=== PATIENT | female | born 1980 | race Caucasian/White ===

== ENCOUNTER 2017-08-06 16:07 | Emergency (ER) | payer OTHER, MEDICAID ==
[~2017-08-06] VITALS: Ht 172.7 cm; Wt 93.4 kg
[~2017-08-06 16:07] MED LIST: CIPRO500 MG PO; FLOMAX0.4 MG PO; HYDROCODON-ACE1 EAC7 PO; HYDROCODONE-AP1 EAC6 PO; IBUPROFEN 800800 M1 PO; LEXAPRO 10 MG T10 M2 PO; LISINOPRIL20 MG PO; ONDANSETRON HCL4 M2 PO; PENICILLIN V P500 MG PO; PHENERGAN 25 MG25 M1 PO; PYRIDIUM100 M1 PO; TORADOL 10 MG T10 MG PO
[2017-08-06 17:21] LABS: INFLUENZA A ANTIGEN None Detected (None Detect); INFLUENZA B ANTIGEN None Detected (None Detect)
[2017-08-06] MEDS ORDERED: NORCO 5-325 TA1 EACH PO (17:31)
[2017-08-06] MEDS ORDERED: TESSALON PERLE100 MG PO (17:31)
[2017-08-06] MEDS ORDERED: VENTOLIN HFA 1818 GM INH (17:31)
[2017-08-06 17:45] VITALS: BP 168/73
--- NOTE | 2017-08-07 17:19 | EKG ---
[place] [address] ELECTROCARDIOGRAM REPORT Name: LATRICE JESSICA Room: [place]#: [id number] Admission: 08/06/17 Attend Phys: Discharge: 08/06/17 Date of : 84 Report #: [id number] THIS REPORT FOR: //name// [facility] ED Test Date: 2017-08-06 Test Time: 16:13:29 Pat Name: LATRICE JESSICA Department: Room: Gender: F Home [employer] Officer: Alberto NUNEZ : 1980 Requested By: Amanda Lr Order Number: [id number] Kasia MD: Napoleon Pavon Measurements Intervals [place] Rate: 69 P: 51 [place]: 141 QRS: 12 QRSD: 92 T: 25 QT: 375 QTc: 402 Interpretive Statements Sinus rhythm Compared to ECG 12/14/2016 16:49:36 No significant changes Electronically Signed On 08-07-2017 17:18:53 [employer] by Napoleon Pavon [email or web address] <ELECTRONICALLY SIGNED> By: Napoleon Pavon MD, [facility] 08/07/17 1718 1613 1613 Napoleon Pavon MD, FACC /EPI
== END 2017-08-06 17:46 | disposition home or self-care (01) ==
LOC: M.ERS 16:07
PROVIDERS: Physician Assistant
DX: J06.9 Acute upper respiratory infection, unspecified (principal); G89.18 Other acute postprocedural pain; B34.9 Viral infection, unspecified; I10 Essential (primary) hypertension; F32.9 Major depressive disorder, single episode, unspecified; F41.9 Anxiety disorder, unspecified; Z87.442 Personal history of urinary calculi; Z87.440 Personal history of urinary (tract) infections

== ENCOUNTER 2017-09-26 08:57 | Emergency (ER) | payer OTHER, MEDICAID ==
[~2017-09-26] VITALS: Ht 172.7 cm; Wt 93.4 kg
[~2017-09-26 08:57] MED LIST changes: +NORCO 5-325 TA1 EACH PO; +TESSALON PERLE100 MG PO; +VENTOLIN HFA 1818 GM INH
[2017-09-26] MEDS ORDERED: NAPROSYN500 MG PO (10:20)
[2017-09-26] MEDS ORDERED: CYCLOBENZAPRINE5 MG PO (10:20)
[2017-09-26] MEDS ORDERED: LIORESAL 10 MG10 MG PO (10:21)
[2017-09-26 10:31] VITALS: BP 133/80
== END 2017-09-26 10:31 | disposition home or self-care (01) ==
LOC: M.ERS 08:57
DX: M26.603 Bilateral temporomandibular joint disorder, unspecified (principal); I10 Essential (primary) hypertension; F32.9 Major depressive disorder, single episode, unspecified; F41.9 Anxiety disorder, unspecified; Z87.440 Personal history of urinary (tract) infections; Z87.442 Personal history of urinary calculi

== ENCOUNTER 2017-11-29 21:05 | Emergency (ER) | payer OTHER, MEDICAID ==
[~2017-11-29] VITALS: Ht 172.7 cm; Wt 93.4 kg
[~2017-11-29 21:05] MED LIST changes: +CYCLOBENZAPRINE5 MG PO; +LIORESAL 10 MG10 MG PO; +NAPROSYN500 MG PO
[2017-11-29 21:20] VITALS: BP 150/77
[2017-11-29] MEDS ORDERED: NORCO 5-325 TA1 EAC1 PO (22:22)
[2017-11-29] MEDS ORDERED: KEFLEX500 M1 PO (22:22)
== END 2017-11-29 21:35 | disposition home or self-care (01) ==
LOC: M.ERS 21:05
DX: S91.112A Laceration without foreign body of left great toe without damage to nail, initial encounter (principal); I10 Essential (primary) hypertension; F41.9 Anxiety disorder, unspecified; F32.9 Major depressive disorder, single episode, unspecified; Z87.442 Personal history of urinary calculi; W22.8XXA Striking against or struck by other objects, initial encounter; Y93.89 Activity, other specified; Y92.89 Other specified places as the place of occurrence of the external cause; Y99.8 Other external cause status

== ENCOUNTER 2017-12-19 21:18 | Emergency (ER) | payer OTHER, MEDICAID ==
[~2017-12-19] VITALS: Ht 172.7 cm; Wt 108.4 kg
[~2017-12-19 21:18] MED LIST changes: +KEFLEX500 M1 PO; +NORCO 5-325 TA1 EAC1 PO
[2017-12-19 21:56] LABS: URINE BILIRUBIN NEGATIVE (Negative); URINE BLOOD 3+ (Negative); URINE CLARITY CLEAR; URINE COLOR YELLOW; URINE GLUCOSE-RANDOM NEGATIVE (Negative); URINE KETONES NEGATIVE (Negative); URINE LEUKOCYTES-REFLEX 1+ (Negative); URINE NITRITE-REFLEX NEGATIVE (Negative); URINE PROTEIN TRACE (Negative); URINE SPECIFIC GRAVITY >= 1.030 (1.005-1.030); URINE UROBILINOGEN 0.2 E.U./dl (0.2-1.0)
[2017-12-19 22:16] LABS: CASTS None Seen /LPF (None Seen); MUCUS 0-3 Light strn/LPF (None Seen); SQUAMOUS >10 Many /LPF (0-3)
[2017-12-19 22:17] LABS: CRYSTALS None Seen /LPF (None Seen); URINE RBC >20 Many /HPF (0-2); URINE WBC-REFLEX 6-15 Few /HPF (0-5)
[2017-12-19] MEDS ORDERED: HYDROCODONE-AP1 EAC6 PO (22:31)
[2017-12-19] MEDS ORDERED: CIPROFLOXACIN500 M1 PO (22:31)
[2017-12-19] MEDS ORDERED: FLEXERIL PO (22:31)
[2017-12-19 22:44] VITALS: BP 122/68
== END 2017-12-19 22:45 | disposition home or self-care (01) ==
LOC: M.ERS 21:18
PROVIDERS: Emergency Medicine
DX: N39.0 Urinary tract infection, site not specified (principal); I10 Essential (primary) hypertension; F32.9 Major depressive disorder, single episode, unspecified; F41.9 Anxiety disorder, unspecified; Z87.442 Personal history of urinary calculi; Z87.440 Personal history of urinary (tract) infections

== ENCOUNTER 2018-01-06 10:13 | Emergency (ER) | payer OTHER, MEDICAID ==
[~2018-01-06] VITALS: Ht 172.7 cm; Wt 107.0 kg
[~2018-01-06 10:13] MED LIST changes: +CIPROFLOXACIN500 M1 PO; +FLEXERIL PO
[2018-01-06 11:37] LABS: URINE CLARITY CLEAR; URINE SPECIFIC GRAVITY 1.025 (1.005-1.030)
[2018-01-06 11:45] LABS: ACETEST (KETONE CONFIRMATORY) Negative (Negative); SSA (PROTEIN CONFIRMATORY) NEGATIVE (Negative); URINE REDUCING SUBSTANCE NEGATIVE (Negative)
[2018-01-06 11:46] LABS: ICTOTEST (BILI CONFIRMATORY) Negative (Negative); URINE COLOR ORANGE
[2018-01-06 12:02] LABS: SQUAMOUS >10 Many /LPF (0-3)
[2018-01-06 12:03] LABS: CASTS None Seen /LPF (None Seen); CRYSTALS None Seen /LPF (None Seen); URINE RBC None Seen /HPF (0-2); URINE WBC-REFLEX 0-5 Rare /HPF (0-5)
[2018-01-06] MEDS ORDERED: ACETAMINOPHEN-1 EAC1 PO (12:26)
[2018-01-06] MEDS ORDERED: FLEXERIL PO (12:26)
[2018-01-06 12:33] VITALS: BP 132/87
== END 2018-01-06 12:34 | disposition home or self-care (01) ==
LOC: M.ERS 10:13
PROVIDERS: Nurse Practitioner Family
DX: M54.5 Low back pain (principal); R30.0 Dysuria; I10 Essential (primary) hypertension; F32.9 Major depressive disorder, single episode, unspecified; F41.9 Anxiety disorder, unspecified; Z87.440 Personal history of urinary (tract) infections; Z87.442 Personal history of urinary calculi

== ENCOUNTER 2018-02-03 15:04 | Emergency (ER) | payer OTHER, MEDICAID ==
[~2018-02-03] VITALS: Ht 172.7 cm; Wt 104.3 kg
[~2018-02-03 15:04] MED LIST changes: +ACETAMINOPHEN-1 EAC1 PO
[2018-02-03] MEDS ORDERED: FLEXERIL PO (15:35)
[2018-02-03] MEDS ORDERED: DICLOFENAC SODI75 MG PO (15:35)
[2018-02-03] MEDS ORDERED: MEDROLDOSEPACK PO (15:36)
[2018-02-03 15:50] VITALS: BP 160/65
== END 2018-02-03 15:51 | disposition home or self-care (01) ==
LOC: M.ERS 15:04
DX: M54.5 Low back pain (principal); I10 Essential (primary) hypertension; F32.9 Major depressive disorder, single episode, unspecified; F41.9 Anxiety disorder, unspecified; Z87.440 Personal history of urinary (tract) infections

== ENCOUNTER 2018-03-12 13:26 | Emergency (ER) | payer OTHER, MEDICAID ==
[~2018-03-12] VITALS: Ht 170.2 cm; Wt 90.7 kg
[~2018-03-12 13:26] MED LIST changes: +DICLOFENAC SODI75 MG PO; +MEDROLDOSEPACK PO
[2018-03-12] MEDS ORDERED: FLEXERIL PO (13:40)
[2018-03-12] MEDS ORDERED: NORCO 5-325 TA1 EACH PO (13:47)
[2018-03-12] MEDS ORDERED: IBUPROFEN 800800 M1 PO (13:47)
[2018-03-12 13:53] VITALS: BP 144/87
== END 2018-03-12 13:54 | disposition home or self-care (01) ==
LOC: M.ERS 13:26
DX: M54.5 Low back pain (principal); F41.9 Anxiety disorder, unspecified; I10 Essential (primary) hypertension; F32.9 Major depressive disorder, single episode, unspecified; Z87.442 Personal history of urinary calculi; Z87.440 Personal history of urinary (tract) infections

== ENCOUNTER 2018-05-21 12:48 | Emergency (ER) | payer OTHER, MEDICAID ==
[~2018-05-21] VITALS: Ht 172.7 cm; Wt 107.0 kg
[2018-05-21] MEDS ORDERED: IBUPROFEN 800800 M1 PO (13:40)
[2018-05-21] MEDS ORDERED: MEDROLDOSEPACK PO (13:40)
[2018-05-21] MEDS ORDERED: ZANAFLEX2 M1 PO (13:40)
[2018-05-21 14:09] VITALS: BP 147/98
== END 2018-05-21 14:10 | disposition home or self-care (01) ==
LOC: M.ERS 12:48
DX: M54.42 Lumbago with sciatica, left side (principal); M54.41 Lumbago with sciatica, right side

== ENCOUNTER 2018-12-04 13:19 | Emergency (ER) | payer OTHER, MEDICAID ==
[~2018-12-04] VITALS: Ht 172.7 cm; Wt 90.7 kg
[~2018-12-04 13:19] MED LIST changes: +ZANAFLEX2 M1 PO
[2018-12-04 13:42] LABS: URINE BILIRUBIN NEGATIVE (Negative); URINE BLOOD NEGATIVE (Negative); URINE CLARITY CLEAR; URINE COLOR YELLOW; URINE GLUCOSE-RANDOM NEGATIVE (Negative); URINE KETONES NEGATIVE (Negative); URINE LEUKOCYTES-REFLEX NEGATIVE (Negative); URINE NITRITE-REFLEX NEGATIVE (Negative); URINE PROTEIN TRACE (Negative); URINE SPECIFIC GRAVITY >= 1.030 (1.005-1.030); URINE UROBILINOGEN 0.2 E.U./dl (0.2-1.0)
[2018-12-04 14:11] LABS: ABSOLUTE EOSINOPHILS 0.1 thou/uL (0.0-0.7); ABSOLUTE LYMPHOCYTES 1.7 thou/uL (0.8-5.3); ABSOLUTE MONOCYTES 0.4 thou/uL (0.0-1.2); ABSOLUTE NEUTROPHILS 4.1 thou/uL (1.6-8.1); BASOPHILS 0.5 %; EOSINOPHILS 1.7 %; HEMATOCRIT 34.4 % (37.0-47.0); LYMPHOCYTES 26.4 %; MCH 25.5 pg (26.0-34.0); MCHC 32.1 g/dL (28.0-37.0); MCV 79.4 fL (80.0-100.0); MONOCYTES 5.8 %; MPV 9.1 fl. (7.2-11.1); NUCLEATED RBCS 0 /100WBC; PLATELET COUNT* 223 thou/uL (150-400); POLYS 65.6 %; RBC 4.33 mil/uL (4.20-5.00); RDW-CV 16.8 % (10.5-14.5); WBC 6.3 thou/uL (4.0-11.0)
[2018-12-04 14:17] LABS: CALCIUM 8.4 mg/dL (8.5-10.1); CREATININE 0.8 mg/dL (0.6-1.3)
[2018-12-04 14:22] LABS: ALBUMIN 3.3 g/dL (3.4-5.0); TOTAL BILIRUBIN 0.4 mg/dL (<0.1-1.0); TOTAL PROTEIN 6.8 g/dL (6.4-8.2)
[2018-12-04] MEDS ORDERED: ZOFRAN ODT4 MG PO (14:59)
[2018-12-04] MEDS ORDERED: IBUPROFEN 800800 M1 PO (14:59)
[2018-12-04 15:13] VITALS: BP 124/77
== END 2018-12-04 15:13 | disposition home or self-care (01) ==
LOC: M.ERS 13:19
PROVIDERS: Nurse Practitioner Psychiatric/Mental Health
DX: R10.9 Unspecified abdominal pain (principal); R11.2 Nausea with vomiting, unspecified; I10 Essential (primary) hypertension; F41.9 Anxiety disorder, unspecified; F32.9 Major depressive disorder, single episode, unspecified; Z87.442 Personal history of urinary calculi

== ENCOUNTER 2019-01-31 12:45 | Emergency (ER) | payer OTHER, MEDICAID ==
[~2019-01-31] VITALS: Ht 172.7 cm; Wt 104.3 kg
[~2019-01-31 12:45] MED LIST changes: +ZOFRAN ODT4 MG PO
[2019-01-31 14:22] VITALS: BP 143/63
== END 2019-01-31 14:22 | disposition left against medical advice (07) ==
LOC: M.ERS 12:45
DX: Z53.21 Procedure and treatment not carried out due to patient leaving prior to being seen by health care provider (principal)

== ENCOUNTER 2019-06-24 10:11 | Emergency (ER) | payer OTHER, MEDICAID ==
[~2019-06-24] VITALS: Ht 172.7 cm; Wt 104.3 kg
[2019-06-24 10:23] VITALS: BP 139/55
[2019-06-24] MEDS ORDERED: FLEXERIL PO (10:58)
[2019-06-24] MEDS ORDERED: MEDROLDOSEPACK PO (10:58)
[2019-06-24] MEDS ORDERED: TRAMADOL 50 MG50 MG PO (10:58)
== END 2019-06-24 11:17 | disposition home or self-care (01) ==
LOC: M.ERS 10:11
DX: M54.5 Low back pain (principal); I10 Essential (primary) hypertension; Z87.442 Personal history of urinary calculi; Z87.440 Personal history of urinary (tract) infections

== ENCOUNTER 2019-08-07 16:16 | Emergency (ER) | payer OTHER, MEDICAID ==
[~2019-08-07] VITALS: Ht 172.7 cm; Wt 104.3 kg
[~2019-08-07 16:16] MED LIST changes: +TRAMADOL 50 MG50 MG PO
[2019-08-07] MEDS ORDERED: LEXAPRO20 MG PO (16:22)
[2019-08-07] MEDS ORDERED: AMOXICILLIN 50500 MG PO (16:33)
[2019-08-07] MEDS ORDERED: IBU600 MG PO (16:33)
[2019-08-07] MEDS ORDERED: TRAMADOL 50 MG50 MG PO (16:33)
[2019-08-07 17:06] VITALS: BP 134/79
== END 2019-08-07 17:06 | disposition home or self-care (01) ==
LOC: M.ERS 16:16
DX: K08.89 Other specified disorders of teeth and supporting structures (principal); I10 Essential (primary) hypertension; F32.9 Major depressive disorder, single episode, unspecified; F41.9 Anxiety disorder, unspecified; Z87.442 Personal history of urinary calculi